=== PATIENT | female | born 1940 | race Hispanic/Latino ===

== ENCOUNTER 2017-10-20 19:33 | Emergency (ER) | payer MEDICARE, OTHER | END 2017-10-20 20:39 | disposition home or self-care (01) | LOC: EDH 19:33 | DX: B02.9 Zoster without complications (principal); E03.9 Hypothyroidism, unspecified; Z88.1 Allergy status to other antibiotic agents ==

== ENCOUNTER 2018-10-25 13:05 | Emergency (ER) | payer OTHER ==
[2018-10-25] MEDS ORDERED: IBUPROFEN 600 MG TABLET ONE (14:16)
== END 2018-10-25 14:37 | disposition home or self-care (01) ==
LOC: EDH 13:05
DX: S63.501A Unspecified sprain of right wrist, initial encounter (principal); E07.9 Disorder of thyroid, unspecified; Z87.891 Personal history of nicotine dependence; Z88.1 Allergy status to other antibiotic agents; X50.1XXA Overexertion from prolonged static or awkward postures, initial encounter; Y93.89 Activity, other specified; Y92.89 Other specified places as the place of occurrence of the external cause; Y99.8 Other external cause status
CPT/HCPCS: 73110